=== PATIENT | female | born 1980 | race Caucasian/White ===

== ENCOUNTER 2024-03-23 16:30 | Emergency (ER) | payer OTHER, SELFPAY ==
[2024-03-23 16:37] VITALS: BP 134/98
[2024-03-23 17:08] LABS: % Basophils 0.5 % (0-2); % Eosinophils 1.6 % (0-6); % Immature Granulocytes 0.2 % (0-0.5); % Lymphocytes 23.3 % (20.5-51.1); % Monocytes 4.7 % (1.7-9.3); % Neutrophils 69.7 % (42.2-75.2); Absolute Eosinophils 0.1 10^3/uL (0-0.7); Absolute Lymphocytes 1.4 10^3/uL (1.2-3.4); Absolute Monocytes 0.3 10^3/uL (0.1-0.6); Absolute Neutrophils 4.3 10^3/uL (1.4-6.5); Hematocrit 41.2 % (37.0-47.0); Hemoglobin 13.8 g/dL (12.0-16.0); Mean Corp Hgb Conc. 33.5 g/dL (33.0-37.0); Mean Corpuscular Hgb 30.2 pg (27.0-31.0); Mean Corpuscular Volume 90.2 fL (81.0-99.0); Mean Platelet Volume 11.2 fL (7.4-10.4); Nucleated Red Blood Cells % 0 %; Platelet Count 172 10^3/uL (130-400); Red Blood Cell Count 4.57 10^6/uL (4.20-5.40); Red Cell Dist. Width 12.7 % (11.5-14.5); White Blood Cell Count 6.2 10^3/uL (4.8-10.8)
[2024-03-23 17:32] LABS: Troponin I < 0.012 ng/ml
[2024-03-23 17:35] LABS: HCG, Serum Qualitative Screen Negative
[2024-03-23 17:36] LABS: ALT (SGPT) 17 U/L (0-35); AST (SGOT) 22 U/L (14-36); Albumin 4.4 g/dl (3.5-5.0); Alkaline Phosphatase 46 U/L (38-126); Blood Urea Nitrogen 20 mg/dl (7-17); Calcium 9.1 mg/dl (8.4-10.2); Carbon Dioxide 24 mmol/L (22-30); Chloride 101 mmol/L (98-107); Glucose 96 mg/dl (70-99); Potassium 4.5 mmol/L (3.5-5.1); Sodium 133 mmol/L (135-145); Total Bilirubin 0.3 mg/dl (0.2-1.3); Total Protein 7.2 g/dl (6.3-8.2); eGFR > 60.00
[2024-03-23 18:46] VITALS: BP 129/75; BMI 19.3
--- NOTE | 2024-03-23 19:18 | ED.GENMED ---
History of Present Illness
General
Chief Complaint: Anxiety
Source: patient
Exam Limitations: none
Time Seen by Provider: 03/23/24 18:48
History of Present Illness
History of Present Illness:
This is a 43 year old female that comes in with c/o anxiety and Chest pain. States that she had this burning inside. States that she felt fine all day. Yesterday she had a Panic attack and she went to see the PCP as she had chest pressure. States
that she was told that this was form the anxiety attack. Today she was better when she got up in the morning and then around 3pm she started again with this burning in her chest and it spread throughout her body. Sates that is subsided in about
10-15min and then it came back but was not in her arms or legs. States that she was a little nauseated and did have a little diarrhea today. Patient states that she also just started Lexapro today. Denies any fever, chills, SOB, abd pain, vomiting,
headache, dizziness, urinary burning.
Past History
Past History
ED Past Medical History: Asthma, Seizures, Psychiatric (Anxiety, Depression) and Other (Migraines, Concussion, )
ED Past Surgical History: None
Social History
Tobacco: Non-smoker
Alcohol: None
Personal: Single
Living: alone
Review of Systems
Review of Systems
All Other Systems: ROS reviewed and negative except as documented in HPI and ROS
Constitutional: Reports no symptoms; Denies fever or chills
EENT: Reports no symptoms
Respiratory: Reports no symptoms; Denies cough or trouble breathing
Cardiac: Reports other (Burning in chest)
ABD/GI: Reports nausea and diarrhea; Denies abdominal pain or vomiting
: Reports no symptoms; Denies dysuria, frequency or urgency
Musculoskeletal: Reports no symptoms
Skin: Reports no symptoms
Neurological: Reports no symptoms; Denies dizzy or headache
Psychiatric: Reports no symptoms
Phy Exam
General Physical Exam
General Presentation: well appearing and no apparent distress
General age: appears stated age
General Skin: warm and dry
General Habitus: normal
General Mental: alert
General Hydration: appears well hydrated
ENT Exam
ENT Exam: TM's normal, pharynx normal and neck supple
Eye Exam
Eye Exam: EOMI
Cardiovascular Exam
Cardiovascular Exam: regular rate/rhythm, no edema and normal peripheral pulses
Pulmonary Exam
Pulmonary Exam: lungs clear, no respiratory distress, no rales, chest non tender, no crackles, no rhonchi, no wheezing and no cough
Gastrointestinal Exam
Gastrointestinal Exam: normal bowel sounds, non tender, soft, no organomegaly, no pulsatile mass and non distended
Musculoskeletal Exam
Musculoskeletal Exam: full ROM and no edema
Skin Exam
Skin Exam: normal color, warm/dry, no rash and no petechia
Psychiatric Exam
Psychiatric Exam: normal mood/affect
Course
Orders/Labs/Results
Orders:
Orders
03/23/24 16:32
EKG [Electrocardiogram (*1)] Urgent
Reason for Study: Chest Pain
03/23/24 16:33
EKG- Treatment ONCE
03/23/24 16:42
Test Result ONCE
03/23/24 16:48
Complete Blood Count/With Diff Urgent
Comprehensive Metabolic Panel Urgent
HCG, Serum Qualitative Screen Urgent
Troponin I Urgent
03/23/24 19:18
Sucralfate Suspension [Carafate Suspension] 1 gm PO NOW STA
CR Chest - 2 Views Urgent
Comment:
Reason For Exam: Chest pain
Abnormal Lab Results
03/23/24
16:48
MPV 11.2 H fL
(7.4-10.4)
Sodium 133 L mmol/L
(135-145)
BUN 20 H mg/dl
(7-17)
Creatinine 1.1 H mg/dL
(0.6-1.0)
03/23/24 16:48
03/23/24 16:48
Sodium slightly low. Dehydration. Troponin <0.012, HCG negative.
Vital Signs
Initial and Last Documented VS:
Initial Vital Signs
Temp Pulse Resp BP Pulse Ox
98.0 F 85 18 134/98 100
03/23/24 16:37 03/23/24 16:37 03/23/24 16:37 03/23/24 16:37 03/23/24 16:37
Last Documented Vital Signs
Temp Pulse Resp BP Pulse Ox
98.0 F 75 18 129/75 100
03/23/24 16:37 03/23/24 18:46 03/23/24 18:46 03/23/24 18:46 03/23/24 18:46
MDM/Problems Addressed
Differential Diagnosis Includes:
Panic attack, Anxiety, GERD
MDM/Problems Addressed:
This is a 43 year old female that comes in with c/o this burning in her chest. State that it then went through her whole body. States that it went away and then came back.
Wiill check labs. Chest x-ray, give Protonix. Explained to patient that this may all be due to her anxiety.
Back into see patient. Explained that her chest x-ray is normal. Encouraged patient to decrease her caffeine intake as this will increase her anxiety and cause reflux. Patient will be given a prescription for Protonix for the next 10 days. Patient
to return with any concerns.
Chronic conditions affecting care: Psychiatric illness (Anxiety)
Acute Exacerbation and/or Progression of Chronic Illness: Psychiatric illness (Anxiety)
*Radiology
Radiology exam reviewed: preliminary read by ED provider (Chest- Negative for active disease) and radiology read reviewed (Chest-Normal)
*Pulse Oximetry
Patient hypoxic: no
*EKG
Interpreted by ED Provider?: Yes
Heart Rate: 84
Rate: normal
Rhythm: sinus
[place]: normal axis
Interval: normal interval
QRS Pattern: normal QRS
Ischemia: no ischemia
*Instructional Systems Design Consultant Interpretation
Rate: Instructional Systems Design Consultant- N/A
*Critical Care Note
Total Time (30-74mins, 75-104mins- exclusive of procedures): Not Applicable
ED Attending Note
-
Portions of this chart may have been created with voice recognition software.� Occasional wrong word or��sound alike� substitutions may have occurred due to the inherent limitations of voice recognition software.
Discharge Plan
Departure
Patient Disposition: Home (Routine Discharge)
Date of Disposition: 03/23/24
Time of Disposition: 20:43
Patient with high blood pressure during this ER visit?: No
Condition: Good
Covid-19: Not Applicable
Discharge Problem:
Anxiety, GERD (gastroesophageal reflux disease)
Instructions: Acid Reflux and GERD in Adults (DC), Anxiety, Adult (DC)
Prescriptions:
New
pantoprazole [Protonix] 40 mg tablet,delayed release (DR/EC)
40 mg PO DAILY Qty: 10 0RF
No Action
multivitamin with minerals [Hair,Skin and Nails] 1 EACH tablet
1 ea PO DAILY
bupropion HCl 150 MG tablet extended release 24 hr
300 mg PO DAILY
Referrals:
Layne Small DO [Family Provider] - Call in 1-3 days for appt
Activity Restrictions/Additional Instructions:
As discussed, your blood work shows slight Dehydrated. Please increase your water intake to 8-8oz glasses daily. Your Chest x-ray is normal. Please decrease your caffeine intake as this will help decrease your anxiety and reflux. You have had a
prescription for Protonix sent your pharmacy for the next 10 days. Follow up with the family doctor as needed. IF YOU HAVE ANY OTHER CONCERNS PLEASE RETURN TO THE EMERGENCY ROOM.
Interventions
Interventions:
*Risk Screen - Suicide Last Done: 03/23/24 16:37
*General Assessment Last Done: 03/23/24 16:37
*Neglect/Abuse Screening Last Done: 03/23/24 16:37
*ED COVID-19 Vaccine History Last Done: 03/23/24 18:47
ED- Cardiac Assessment Last Done: 03/23/24 18:48
ED-Psychological Assessment Last Done: 03/23/24 18:48
Discharge Date and Time
Print Language: HUNGARIAN
[2024-03-23] MEDS: CARAFATE SUSPENSION 1 GM PO (19:43)
== END 2024-03-23 20:57 | disposition home or self-care (01) ==
LOC: EMR 16:30
PROVIDERS: Emergency Medicine; EMERGENCY PHYSICIAN Emergency Medicine; FAMILY PHYSICIAN Family Medicine
DX: F41.9 Anxiety disorder, unspecified (principal); K21.9 Gastro-esophageal reflux disease without esophagitis; R11.0 Nausea; R19.7 Diarrhea, unspecified; R07.89 Other chest pain; F41.0 Panic disorder [episodic paroxysmal anxiety]; E86.0 Dehydration; F32.A Depression, unspecified; J45.909 Unspecified asthma, uncomplicated; R56.9 Unspecified convulsions; G43.909 Migraine, unspecified, not intractable, without status migrainosus; Z87.820 Personal history of traumatic brain injury
CPT/HCPCS: 99283; 71046; 80053; 84484; 84703; 85025; 93005